=== PATIENT | female | born 1970 | race Caucasian/White ===

== ENCOUNTER 2016-09-16 19:19 | Emergency (ER) | payer OTHER, BC ==
--- NOTE | 2016-09-16 20:24 | ED NURSING NOTES ---
Clinical Report - Nurses [facility] [address] [place] [address] 09/16/2016 19:21 Patient: ASHLEY BLACK TRIAGE Triage time 19:Sep 16 2016. Acuity: LEVEL 3. Chief Complaint: NAUSEA and VOMITING. --19:40 Pauline Cleary R.N. 19:29 09/16/16. BP: 148/106. HR: 107. RR: 16. O2 saturation: 96%. Temp: 98.5 F. Pain level now: 0/10. --19:40 Pauline Cleary R.N. Weight: 72.5 kg stated. Height/Length: 62 inches Per Patient. BMI: 29.3. --19:39 Pauline Cleary R.N. Medications ClonazePAM Oral. --19:33 Pauline Cleary R.N. Minocycline Hcl Oral. --19:33 Pauline Cleary R.N. Propranolol HCl Oral. --19:34 Pauline Cleary R.N. Zofran Oral. --19:34 Pauline Cleary R.N. Allergies Sulfa. --19:35 Pauline Cleary R.N. Bactrim. --19:35 Pauline Cleary R.N. History Arrived by private vehicle. Historian: patient. Accompanied by friend. Onset. (about 7 months). She has had anxiety and depression. No abdominal pain or fever. 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 PAST MEDICAL HX: Immunizations: up-to-date. The patient is post-menopausal. SOCIAL HX: Current every day heavy tobacco smoker (cigarette)- more than 2 packs per day. Heavy alcohol use. History of drug use: marijuana. (about 3 weeks ago). No recent travel. No infectious disease exposure. No known contact with a sick individual. SELF HARM ASSESSMENT: A self harm assessment was performed. The patient answered "no" to the question "Do you have thoughts of harming or killing yourself?" and "Have you recently had thoughts about harming or killing others?". FALL RISK ASSESSMENT: Fall risk assessment completed. No fall risk identified. NUTRITIONAL RISK ASSESSMENT: The nutritional risk assessment revealed no deficiencies. FUNCTIONAL ASSESSMENT: Functional assessment: no impairments noted. LEARNING NEEDS ASSESSMENT: The learning needs assessment revealed no barriers. ABUSE ASSESSMENT: Abuse assessment: The patient was asked "Do you feel safe in your home?". SKIN INTEGRITY ASSESSMENT: Skin integrity risk assessment completed. No skin integrity risk identified. --19:40 Pauline Cleary R.N. PROBLEMS: Fatty liver. Depression. Anxiety. Alcohol Withdrawal. Alcohol Intoxication. --19:37 Pauline Cleary R.N. ADDITIONAL SURGERIES: Ablation. Facial surgery . --19:37 Pauline Cleary R.N. Interventions ID band on patient. --19:40 Pauline Cleary R.N. DISPOSITION / DISCHARGE The patient left the Emergency Department without being seen by a physician; patient was accompanied by a mechanic marine engine. The patient appears to be alert, oriented x4, coherent and in no acute distress. The patient notified the ED staff prior to leaving the department and stated is leaving the ED due to the long waiting time. Notified the ED physician of patient departure. Prior to leaving the ED, she was advised to stay for completion of treatment and return if needed. She was informed of the risks of leaving and verbalized understanding of these risks. Patient refused to sign form prior to leaving. She left the Emergency Department ambulatory. ( Patient informed registration that she would not be staying as it was taking too long for her to be seen. Patient encouraged to stay by registration staff Paul Fields. Registration notified ER staff that patient left department.). --20:26 April Constantino. Locked/Released at 09/16/2016 20:29 by Pauline Cleary R.N.
--- NOTE | 2016-09-16 20:24 | ED NURSING NOTES ---
Clinical Report - Nurses [facility] [address] [place] [address] 09/16/2016 19:21 Patient: ASHLEY BLACK TRIAGE Triage time 19:Sep 16 2016. Acuity: LEVEL 3. Chief Complaint: NAUSEA and VOMITING. --19:40 Pauline Cleary R.N. 19:29 09/16/16. BP: 148/106. HR: 107. RR: 16. O2 saturation: 96%. Temp: 98.5 F. Pain level now: 0/10. --19:40 Pauline Cleary R.N. Weight: 72.5 kg stated. Height/Length: 62 inches Per Patient. BMI: 29.3. --19:39 Pauline Cleary R.N. Medications ClonazePAM Oral. --19:33 Pauline Cleary R.N. Minocycline Hcl Oral. --19:33 Pauline Cleary R.N. Propranolol HCl Oral. --19:34 Pauline Cleary R.N. Zofran Oral. --19:34 Pauline Cleary R.N. Allergies Sulfa. --19:35 Pauline Cleary R.N. Bactrim. --19:35 Pauline Cleary R.N. History Arrived by private vehicle. Historian: patient. Accompanied by friend. Onset. (about 7 months). She has had anxiety and depression. No abdominal pain or fever. 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 PAST MEDICAL HX: Immunizations: up-to-date. The patient is post-menopausal. SOCIAL HX: Current every day heavy tobacco smoker (cigarette)- more than 2 packs per day. Heavy alcohol use. History of drug use: marijuana. (about 3 weeks ago). No recent travel. No infectious disease exposure. No known contact with a sick individual. SELF HARM ASSESSMENT: A self harm assessment was performed. The patient answered "no" to the question "Do you have thoughts of harming or killing yourself?" and "Have you recently had thoughts about harming or killing others?". FALL RISK ASSESSMENT: Fall risk assessment completed. No fall risk identified. NUTRITIONAL RISK ASSESSMENT: The nutritional risk assessment revealed no deficiencies. FUNCTIONAL ASSESSMENT: Functional assessment: no impairments noted. LEARNING NEEDS ASSESSMENT: The learning needs assessment revealed no barriers. ABUSE ASSESSMENT: Abuse assessment: The patient was asked "Do you feel safe in your home?". SKIN INTEGRITY ASSESSMENT: Skin integrity risk assessment completed. No skin integrity risk identified. --19:40 Pauline Cleary R.N. PROBLEMS: Fatty liver. Depression. Anxiety. Alcohol Withdrawal. Alcohol Intoxication. --19:37 Pauline Cleary R.N. ADDITIONAL SURGERIES: Ablation. Facial surgery . --19:37 Pauline lCeary R.N. Interventions ID band on patient. --19:40 Pauline Cleary R.N. DISPOSITION / DISCHARGE The patient left the Emergency Department without being seen by a physician; patient was accompanied by a station mechanic apprentice. The patient appears to be alert, oriented x4, coherent and in no acute distress. The patient notified the ED staff prior to leaving the department and stated is leaving the ED due to the long waiting time. Notified the ED physician of patient departure. Prior to leaving the ED, she was advised to stay for completion of treatment and return if needed. She was informed of the risks of leaving and verbalized understanding of these risks. Patient refused to sign form prior to leaving. She left the Emergency Department ambulatory. ( Patient informed registration that she would not be staying as it was taking too long for her to be seen. Patient encouraged to stay by registration staff Paul Fields. Registration notified ER staff that patient left department.). --20:26 April Constantino. Locked/Released at 09/16/2016 20:29 by Pauline Cleary R.N.
--- NOTE | 2016-09-16 20:29 | ED MAR SUMMARY ---
..... Medication Administration Record [facility] [address] [place] [id number] Patient: ASHLEY BLACK Visit ID: [id number] 46y, F Weight: 72.5 kg Height/Length: 62 in BMI: 29.3 ALLERGIES: Bactrim, Sulfa
--- NOTE | 2016-09-16 20:29 | ED MED RECONCILIATION SUMMARY ---
Patient: ASHLEY BLACK Medication Reconciliation Report [facility] VisitID: [id number] [address] [place] [address] 46y, F Registration Date/Time: 09/16/2016 Weight: 72.5 kg Height/Length: 62 in. BMI: 29.3 ALLERGIES: Bactrim, Sulfa The patient's Home Medications are listed below: THE FOLLOWING MEDICATIONS NEED TO BE RECONCILED: ClonazePAM Oral Minocycline Hcl Oral Propranolol HCl Oral Zofran Oral The source(s) of the original Home Medication information: Not obtained. The following Medications were given to the patient in the Emergency Department: None. The following Medications were prescribed to the patient: None.
--- NOTE | 2016-09-16 20:29 | ED MAR SUMMARY ---
..... Medication Administration Record [facility] [address] [place], [place] [id number] Patient: ASHLEY BLACK Visit ID: [id number] 46y, F Weight: 72.5 kg Height/Length: 62 in BMI: 29.3 ALLERGIES: Bactrim, Sulfa
--- NOTE | 2016-09-16 20:29 | ED MED RECONCILIATION SUMMARY ---
Patient: ASHLEY BLACK Medication Reconciliation Report [facility] VisitID: [id number] [address] [place] [address] 46y, F Registration Date/Time: 09/16/2016 Weight: 72.5 kg Height/Length: 62 in. BMI: 29.3 ALLERGIES: Bactrim, Sulfa The patient's Home Medications are listed below: THE FOLLOWING MEDICATIONS NEED TO BE RECONCILED: ClonazePAM Oral Minocycline Hcl Oral Propranolol HCl Oral Zofran Oral The source(s) of the original Home Medication information: Not obtained. The following Medications were given to the patient in the Emergency Department: None. The following Medications were prescribed to the patient: None.
== END 2016-09-16 20:23 | disposition left against medical advice (07) ==
LOC: ED SRH 19:19
DX: Z53.21 Procedure and treatment not carried out due to patient leaving prior to being seen by health care provider (principal)